=== PATIENT | female | born 1985 | race Caucasian/White ===

== ENCOUNTER 2023-06-11 08:14 | Outpatient (OUT) | payer OTHER, SELFPAY ==
--- NOTE | 2023-06-11 08:24 | US_ITS ---
The [address] [address] Patient Name: COLLEEN VANN MRN: [id number] date: 1985 Sex: F Assigned Patient Location: [place] Current Patient Location: [place] Accession/Order Number: [id number] Exam Date: 06/11/2023 08:25 Report Date: 06/11/2023 09:25 At the request of: ALPHONSO AVILEZ Procedure: US right upper quadrant EXAM: US right upper quadrant HISTORY: . Abdominal Pain R10.84 . COMPARISON: None. TECHNIQUE: Paez scale and color imaging was performed FINDINGS: Scanning of the pancreas demonstrates the pancreas to be unremarkable. The liver is normal in size. No masses are noted. Color-flow is noted in the portal and hepatic veins. Right kidney measures 11.2 x 5.3 x 4 cm. No solid renal cortical masses or hydronephrosis is noted. Scanning of the gallbladder demonstrates a 3 mm echogenic focus along the wall of the gallbladder consistent with a gallbladder polyp. No gallbladder wall thickening is noted. Patient had no pain upon scanning over the gallbladder. No fluid is noted in the right upper quadrant. US/US right upper quadrant IMPRESSION: 1. 3 mm gallbladder polyp. No gallstones. No gallbladder wall thickening. 2. The remainder the right upper quadrant was unremarkable. Electronically authenticated by: JENA HAYES Date: 06/11/2023 09:25
== END 2023-06-11 08:15 | disposition home or self-care (01) ==
LOC: US 08:14
PROVIDERS: PCP Family Medicine; Visit Provider Family Medicine
DX: R10.84 Generalized abdominal pain (principal)
CPT/HCPCS: 76705